=== PATIENT | female | born 1965 | race Caucasian/White ===

== ENCOUNTER 2022-10-28 15:58 | Outpatient (REF) | payer BC, SELFPAY ==
[2022-10-28 15:17] LABS: TSH 2.89 uIU/mL (0.36-3.74)
== END 2022-10-28 15:59 | disposition home or self-care (01) ==
LOC: NCHCN 15:58
PROVIDERS: Visit Provider Family Medicine
DX: E03.9 Hypothyroidism, unspecified (principal)
CPT/HCPCS: 84443

== ENCOUNTER 2022-11-25 00:33 | Outpatient (CLI) | payer BC, SELFPAY ==
--- NOTE | 2022-11-25 08:18 | DI.MAMMO_ITS ---
Exam(s) MAMMO SCREENING EXAM: MAMMO SCREENING CLINICAL HISTORY: SCREENING, Z12.31 TECHNIQUE: Bilateral full field digital CC and MLO mammographic images were obtained with 3D tomosyn thesis and utilizing computer aided detection (CAD). COMPARISON: Available for comparison. FINDINGS: Masses/Architectural Distortion: None seen. Microcalcifications: No suspicious pleomorphic-type are seen. Skin Thickening/Nipple Retraction: None. IMPRESSION: 1. No significant interval change with no specific features of malignancy noted. 2. Unless there is more urgent need, screening mammography is recommended, as per [employer] guidelines. BI-RADS Category 1 - Negative Breast Density - Category B - Scattered areas of fibroglandular density Breast density category C or D implies that the patient has dense breast tissue. Dense breast tissue is very common and is not abnormal but dense breast tissue can make it harder to find cancer on a ma mmogram. Also, dense breast tissue may increase their breast cancer risk. This information about the result of the mammogram report was provided to the patient to raise their awareness. Use this report when you speak with the patient about their risks for breast cancer, which includes their family hist ory. At that time, you may recommend for more screening tests (Ultrasound or MRI) as they might be us eful based on their risk. A negative radiographic report should not delay biopsy if a dominant or clinically suspicious mass is present. Up to ten percent of cancers are not identified on mammography. A negative report may reinforce clinical impression. Adenosis and dense breasts may obscure an underlying neoplasm. False positive reports average 6 to 10%. Patient will receive a letter notifying them of these results.
--- NOTE | 2022-11-25 08:30 | DI.CTLCSR_ITS ---
Exam(s) CT CHEST LUNG CANCER SCREEN EXAM: CT CHEST LUNG CANCER SCREEN CLINICAL HISTORY: H/O TOBACCO ABUSE, Z87.891, 30-YEAR PACK HISTORY, QUIT 15 YEARS AGO TECHNIQUE: Imaging Protocol: Axial computed tomography images with coronal and sagittal reformatted images were created and reviewed COMPARISON: No exams were available for comparison FINDINGS: Tracheobronchial tree: Patent where visualized. Pulmonary parenchyma: No consolidation or dominant measurable mass. No architectural distortion. Ther e is mild atelectasis in the dependent portions of the lungs. Lung Nodules: None. Mediastinum and Leslie: No dominant adenopathy or fluid collection. The esophagus is unremarkable. Thyroid gland: Unremarkable. Lymph nodes: Unremarkable. Pleura: No effusion or pneumothorax. Heart: The heart is not dilated. No coronary artery calcifications are seen. No pericardial effusion . Aorta: Thoracic aorta non-dilated. Upper abdomen: There are surgical clips in the left abdomen. Soft Tissues: Unremarkable. Bones: Within normal limits. IMPRESSION: No pulmonary nodules. Lung RADS Cat 1 - Negative: No nodules and definitely benign nodules Lung-RADS 1.0 CATEGORIES: Category 0 - Prior chest CT exam(s) being located for comparison. Category 1 - Annual screening in 12 months. No nodules or definitely benign nodules. Category 2 - Annual screening in 12 months. Benign appearance. Nodules with low likelihood of becomin g active cancer. Category 3 - 6-month follow-up. Probably benign. Short-term follow-up suggested. Nodules with low lik elihood of becoming active cancer. Category 4A - 3-month follow-up and CT/PET if >8 mm in size. Suspicious finding. Findings which requi re additional testing. Category 4B - Findings which require additional testing and tissue sampling. Suspicious finding. Category 4X - Category 3 or 4 nodules with additional features or imaging findings that increases the suspicion of malignancy. Modifier S- Potentially clinically significant finding. (Non lung cancer) RADIATION DOSE DELIVERED: 74.34mGy.cm Total DLP 74.34mGy.cmTotal DLP DATA REPOSITORY: All CT scans at this facility are submitted to the National Radiology Data Registry (NRDR) Dose Index Registry (DIR) with the [employer] ([employer]). RADIATION OPTIMIZATION: All CT scans at this facility use at least one of these dose optimization te chniques: automated exposure control; mA and/or kV adjustment per patient size (includes targeted exa ms where dose is matched to clinical indication); or iterative reconstruction.
== END 2022-11-25 00:53 ==
PROVIDERS: Visit Provider Family Medicine
DX: Z12.2 Encounter for screening for malignant neoplasm of respiratory organs (principal); Z87.891 Personal history of nicotine dependence; Z12.31 Encounter for screening mammogram for malignant neoplasm of breast
CPT/HCPCS: 71271; 77063; 77067

== ENCOUNTER 2022-12-23 00:46 | Outpatient (CLI) | payer BC, SELFPAY ==
--- NOTE | 2022-12-23 | DI.RAD_ITS ---
Exam(s) XR CERVICAL SP COMP W FLEX/EXT EXAM: XR CERVICAL SP COMP W FLEX/EXT CLINICAL HISTORY: NECK PAIN M54.2. TECHNIQUE: 2D digital imaging was performed. COMPARISON: No exams were available for comparison FINDINGS: Eight views No evidence of fracture nor significant listhesis. There is moderate disc space narrowing at C5-6 le ozzie. On the oblique view to there are small Luschka joint osteophytes bilaterally at this level. Di sc spaces exhibit normal height. There is some facet arthropathy evident at C5-6 level; less so at t he other levels. There are no cervical ribs. On the oblique views there is calcification noted proj ected through the 6-7 exiting neural foramina. Calcification at this level is of questionable origin . IMPRESSION: Degenerative disc disease at C5-6 level. C6-7 level calcifications evident through the exiting neural foramina on the oblique views. May repr esent ligamentous calcification. DATA REPOSITORY: RADIATION DOSE DELIVERED:
== END 2022-12-23 01:06 ==
LOC: DI 00:46
PROVIDERS: PCP Family Medicine; Visit Provider Family Medicine
DX: M50.022 Cervical disc disorder at C5-C6 level with myelopathy (principal); M50.023 Cervical disc disorder at C6-C7 level with myelopathy
CPT/HCPCS: 72052

== ENCOUNTER 2023-09-20 15:15 | Outpatient (REF) | payer BC, SELFPAY ==
[2023-09-20 21:30] LABS: Anion Gap 8.2 mmol/L (3-11); BUN 7 mg/dL (7-18); CO2 28.8 mmol/L (21.0-32.0); CREATININE 0.7 mg/dL (0.55-1.02); Calcium 9.6 mg/dL (8.5-10.1); Chloride 105 mmol/L (98-107); Estimated GFR 100.19 (mL/min/1.73m2); Glucose 101 mg/dL (74-106); Potassium 4.1 mmol/L (3.5-5.1); Sodium 142 mmol/L (136-145)
== END 2023-09-20 15:16 | disposition home or self-care (01) ==
LOC: NCHCN 15:15
PROVIDERS: PCP Family Medicine; Visit Provider Family Medicine
DX: G50.9 Disorder of trigeminal nerve, unspecified (principal)
CPT/HCPCS: 80048

== ENCOUNTER → 2023-10-06 00:16 | Outpatient (CLI) | payer BC, SELFPAY ==
--- NOTE | 2023-10-06 09:10 | DI.MRI_ITS ---
Exam(s) MR CERVICAL SPINE WO EXAM: MR CERVICAL SPINE WO CLINICAL HISTORY: DEGENERATION OF CERVICAL INTERVERTEBRAL DISC M50.30 NUMBNESS, WORSE W/ TECHNIQUE: Multiplanar multisequence MRI of the cervical spine was performed without intravenous con trast. COMPARISON: CR XR CERVICAL SP COMP W FLEX/EXT from 12/23/2022 FINDINGS: BONES: Vertebral body heights are maintained. Alignment is normal. Bone marrow signal intensity is wi thin normal limits. CERVICAL CORD: Craniovertebral junction is unremarkable. The cervical cord is normal size and signal intensity. SOFT TISSUES: Unremarkable. C2-3: No disc herniation or bulge is identified. No evidence of neural foraminal narrowing. No signi ficant central canal stenosis. C3-4: No disc herniation or bulge is identified. No evidence of neural foraminal narrowing. No signif icant central canal stenosis. C4-5: Minimal disc bulging. Mild leftneural foraminal narrowing. No significant central canal stenos is. C5-6: Mild loss of disc height. Mild disc bulging. Small endplate osteophytes.Moderate bilateral ne ural foraminal narrowing. No significant central canal stenosis. C6-7: Mild disc bulging. No evidence of neural foraminal narrowing. No significant central canal alonzo nosis. C7-T1: No disc herniation or bulge is identified. No evidence of neural foraminal narrowing. No signi ficant central canal stenosis. IMPRESSION: Degenerative disc changes at C5-6 cause moderate bilateral neural foraminal narrowing. No evidence o f disc herniation at any level. DATA REPOSITORY:
[2023-10-06] MEDS: Gadoterate meglumine 20 ML VIAL 12 ML IVP (09:32)
--- NOTE | 2023-10-06 10:00 | DI.MRI_ITS ---
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 TECHNIQUE: Multiplanar multisequence MRI of the brain an additional thin sequences centered on the b rainstem were performed. CONTRAST MATERIAL: IV Contrast: 13 mL of Dotarem contrast administered. COMPARISON: No exams were available for comparison FINDINGS: VENTRICLES AND EXTRA AXIAL SPACES: Normal in size and morphology for the patient's age. HEMORRHAGE: None. CEREBRAL PARENCHYMA: No focus of restricted diffusion to suggest acute infarct. No space-occupying le manuel identified.No abnormal high signal lesions in the white matter. MIDLINE SHIFT: None. BRAINSTEM/CEREBELLUM: Normal. CALVARIUM: Normal. ENHANCEMENT: No suspicious enhancement identified. VISUALIZED PARANASAL SINUSES/MASTOIDS: Clear. ORBITS: Unremarkable. IAC/CP ANGLE: The internal auditory canals are within normal limits. The cerebellar pontine angles ar e unremarkable. No enhancing lesions are seen. Visualized portions of the cranial nerves appear withi n normal limits. The trigeminal nerves appear symmetric. No abnormal enhancement. No masses seen n ear skull base. Vasculature: Normal flow voids. No aberrant vessels or vascular malformations identified. No eviden ce of aneurysm. IMPRESSION: Unremarkable MRI of the brain and brainstem.. DATA REPOSITORY:
== END ==
PROVIDERS: PCP Family Medicine; Visit Provider Family Medicine
DX: G50.8 Other disorders of trigeminal nerve (principal); R20.0 Anesthesia of skin; K14.8 Other diseases of tongue; M50.322 Other cervical disc degeneration at C5-C6 level
CPT/HCPCS: 70553; 72141

== ENCOUNTER 2024-01-15 13:42 | Outpatient (REF) | payer BC, SELFPAY ==
[2024-01-15 16:30] LABS: Hemoglobin A1C 5.4 % (<5.7)
[2024-01-15 16:58] LABS: TSH (W/Ref FT4) 1.06 uIU/mL (0.36-3.74)
== END 2024-01-15 13:43 | disposition home or self-care (01) ==
LOC: NCHCN 13:42
PROVIDERS: PCP Family Medicine; Visit Provider Family Medicine
DX: E03.9 Hypothyroidism, unspecified (principal); Z13.1 Encounter for screening for diabetes mellitus
CPT/HCPCS: 83036; 84443

== ENCOUNTER 2024-02-16 12:42 | Outpatient (REF) | payer BC, SELFPAY ==
[2024-02-16 15:09] LABS: Vitamin D 25 Total 25.3 ng/mL (30-100)
== END 2024-02-16 12:43 | disposition home or self-care (01) ==
LOC: NCHCN 12:42
PROVIDERS: PCP Family Medicine; Visit Provider Family Medicine
DX: M81.0 Age-related osteoporosis without current pathological fracture (principal)
CPT/HCPCS: 82306

== ENCOUNTER 2024-03-25 03:27 | Outpatient (CLI) | payer BC, SELFPAY ==
--- NOTE | 2024-03-25 | DI.DEXA_ITS ---
Exam(s) XR DEXA BONE DENSITY W/WO GERARD EXAM: XR DEXA BONE DENSITY W/WO GERARD CLINICAL HISTORY: Age-related osteoporosis wo current pathological fx, M81.0 TECHNIQUE: [employer] C densitometer analysis of left hip, lumbar spine and left forearm. Lat eral survey image of the thoracic and lumbar spine. COMPARISON: No exams were available for comparison FINDINGS: Lateral view of the thoracic and lumbar spine shows no evidence of compression fractures. There are degenerative changes at the L2-3 disc level with osteophytes eccentric toward the left causing dextro scoliosis. Bone mineral density measurements of the lumbar spine correspond to a total T-score of -2.5, in the osteoporotic range. Bone mineral density measurements of the left hip correspond to a total T-score of -2.4. The femora l neck T-score is -2.7, in the osteoporotic range.. Theleft forearm bone mineral density measurements correspond to a T-score of the distal 3rd of -1.1, in the osteopenic range.. IMPRESSION: Osteoporosis of the spine and hip. Osteopenia of the forearm.
== END 2024-03-25 03:47 ==
LOC: DI 03:27
PROVIDERS: PCP Family Medicine; Visit Provider Family Medicine
DX: Z13.820 Encounter for screening for osteoporosis (principal); M81.0 Age-related osteoporosis without current pathological fracture
CPT/HCPCS: 77080

== ENCOUNTER 2024-05-10 12:31 | Outpatient (REF) | payer BC, SELFPAY ==
--- NOTE | 2024-05-10 09:00 | SKI_PTH ---
PATIENT: Lety Lange LOC: [facility] U#:[id number] AGE/SX: 59/F ROOM: RE05/10/[address]: Kandi Hurst : 1965 BED: DIS: 05/10/2024 SPEC #: [id number] RECD: 05/10/24 15:14 STATUS: RAISA MADRIGAL #: [id number] DEION: 05/10/24 09:[address]: Kandi Hurst DEPT: Surgical Specimen RECD BY: Kamilla Schmid Tissues: 1 - SKIN BIOPSY(SHAVE/PUNCH) 2 - SKIN BIOPSY(SHAVE/PUNCH) Procedures: SKIN LEVEL 4 Comments: [id number]
== END 2024-05-10 12:32 | disposition home or self-care (01) ==
LOC: NCHCN 12:31
PROVIDERS: PCP Family Medicine; Visit Provider Family Medicine
DX: D22.62 Melanocytic nevi of left upper limb, including shoulder (principal); D22.5 Melanocytic nevi of trunk
CPT/HCPCS: 88305

== ENCOUNTER 2025-01-16 16:41 | Outpatient (REF) | payer OTHER, SELFPAY ==
[2025-01-16 16:49] LABS: Anion Gap 8.5 mmol/L (3-11); BUN 11 mg/dL (7-18); CO2 29.5 mmol/L (21.0-32.0); Calcium 9.6 mg/dL (8.5-10.1); Calculated LDL 149 mg/dL (<100); Chloride 103 mmol/L (98-107); Cholesterol 241 mg/dL (<200); Estimated GFR 103.33 (mL/min/1.73m2); Glucose 85 mg/dL (74-106); HDL Cholesterol 69 mg/dL (>or=50); Potassium 4.4 mmol/L (3.5-5.1); Sodium 141 mmol/L (136-145); TSH (W/Ref FT4) 1.83 uIU/mL (0.36-3.74); Triglyceride 119 mg/dL (<150); Vitamin D 25 Total 26 ng/mL (30-100)
== END 2025-01-16 16:42 | disposition home or self-care (01) ==
LOC: NCHCN 16:41
PROVIDERS: PCP Family Medicine; Visit Provider Family Medicine
DX: E03.9 Hypothyroidism, unspecified (principal); M81.0 Age-related osteoporosis without current pathological fracture; E55.9 Vitamin D deficiency, unspecified; Z13.220 Encounter for screening for lipoid disorders
CPT/HCPCS: 80048; 80061; 82306; 84443

== ENCOUNTER 2025-02-28 01:07 | Outpatient (CLI) | payer OTHER, SELFPAY ==
--- NOTE | 2025-02-28 | DI.MAMMO_ITS ---
Exam(s) MAMMO SCREENING EXAM: MAMMO SCREENING CLINICAL HISTORY: SCREENING, Z12.31. TECHNIQUE: Bilateral full field digital CC and MLO mammographic images were obtained with 3D tomosynthesis and utilizing computer aided detection (CAD). COMPARISON: Prior mammograms were reviewed. FINDINGS: There has been no significant change in the appearance and distribution of the fibroglandular tissue. There are no CAD designations. There are no new spiculated masses nor malignant appearing microcalcification groups. There is no significant architectural distortion nor skin thickening-retraction. IMPRESSION: No radiographic evidence of malignancy. BI-RADS Category 1 - Negative Breast Density - Category B - There are scattered areas of fibroglandular density. Breast density Category C or D implies that the patient has dense breast tissue. Dense breast tissue can make it harder to find cancer on a mammogram. Dense breast tissue is also associated with an increased risk of breast cancer. This information about the result of the mammogram report was provided to the patient to raise their awareness. Use this report when you speak with the patient about their risks for breast cancer, which includes their family history. At that time, you may recommend additional screening tests (Ultrasound or MRI) as these tests may add significant information. A negative radiographic report should not delay biopsy if a dominant or clinically suspicious mass is present. Up to ten percent of cancers are not identified on mammography. A negative report may reinforce clinical impression. Adenosis and dense breasts may obscure an underlying neoplasm. False positive reports average 6 to 10%. Patient will receive a letter notifying them of these results.
== END 2025-02-28 01:27 ==
PROVIDERS: PCP Family Medicine; Visit Provider Family Medicine
DX: Z12.31 Encounter for screening mammogram for malignant neoplasm of breast (principal); R92.323 Mammographic fibroglandular density, bilateral breasts
CPT/HCPCS: 77063; 77067